=== PATIENT | male | born 1950 | race African-American/Black ===

== ENCOUNTER 2017-08-18 21:08 | Inpatient (IN) | END 2017-08-21 18:06 | disposition home or self-care (01) | DRG 811 ==

== ENCOUNTER 2017-11-03 20:59 | Inpatient (IN) | END 2017-11-05 15:30 | disposition home or self-care (01) | DRG 811 ==

== ENCOUNTER 2017-12-30 12:48 | Inpatient (IN) | END 2017-12-31 21:35 | disposition home or self-care (01) | DRG 811 ==

== ENCOUNTER 2018-01-11 12:10 | Emergency (ER) | END 2018-01-11 13:01 | disposition left against medical advice (07) ==

== ENCOUNTER 2018-10-10 13:28 | Inpatient (IN) | payer MEDICARE, OTHER ==
[2018-10-10] VITALS (16 sets, daily range): BP systolic 90–119; BP diastolic 54–85; PULSE 86–96; RESP 16; Ht 182.9 cm; Wt 67.7 kg
[~2018-10-10] VITALS: Ht 182.9 cm; Wt 67.7 kg
[~2018-10-10 13:28] MED LIST: AMLO-147 PO; CALC-143 PO; FINA5TAB PO; FOLI20CA PO; FURO40TA4 PO; METO-429 PO; TAMS0.4C2 PO; TERA5CAP3 PO; TRAM50TA2 PO
[2018-10-10] MEDS ORDERED: HYDROmorphONE 1 MG/ML SYG IV STA (13:51)
[2018-10-10] MEDS ORDERED: ONDANSETRON 4 MG INJ IV STA (13:51)
[2018-10-10] MEDS ORDERED: FER325 PO (14:24)
[2018-10-10] MEDS ORDERED: FURO40TA4 PO (14:25)
[2018-10-10] MEDS ORDERED: METO-319 PO (14:26)
[2018-10-10] MEDS ORDERED: SVL800C PO (14:26)
[2018-10-10] MEDS ORDERED: AMLO5TAB4 PO (14:27)
[2018-10-10] MEDS ORDERED: TAMS-14 PO (14:27)
[2018-10-10] MEDS ORDERED: B CO1CAP5 PO (14:28)
[2018-10-10] MEDS ORDERED: HYDROCODONE/APAP (5/325) TAB PO ONE (15:00)
[2018-10-10] MEDS ORDERED: SOD CHLORIDE 0.9% 0 ML IV ONE (15:01)
[2018-10-10] MEDS ORDERED: ONDANSETRON 4 MG INJ IV PRN (15:30)
[2018-10-10] MEDS ORDERED: PIPER-TAZO 3.375 GM IV (PMX) 100 ML IVPB ONE (15:30)
[2018-10-10] MEDS ORDERED: ACETAMINOPHEN 325 MG TAB PO PRN (15:30)
[2018-10-10] MEDS ORDERED: VANCOMYCIN 1 GM (PMX) 250 ML IVPB ONE (15:30)
[2018-10-10] MEDS ORDERED: NA POLYST SULFON 15 GM/60 ML BTL PO ONE (15:30)
[2018-10-10] MEDS ORDERED: NA BICARBONATE 8.4% 50 ML SYG IV STA (15:36)
--- NOTE | 2018-10-10 15:36 | ERD ---
ER Documentation Chief Complaint Chief Complaint SICKLE CELL PAIN, HGB 5.9, MISSED DIALYSYS LAST THURSDAY HPI 67-year-old male presents to the emergency department complaining of generalized weakness. Patient has a history of end-stage renal disease requiring dialysis. He is missed his dialysis for the last 4 days or so with his last dialysis on Thursday. He reports of generalized weakness. He has no focal weakness or numbness. He reports no fevers or chills. He reports no pain. Patient also states he has a history of significant anemia along with his history of sickle cell disease. He has required multiple transfusions in the past. He reports no melena or GI bleeding. He reports no active bleeding. ROS All systems reviewed and are negative except as per history of present illness. Medications Home Meds Reported Medications B Complex with Vitamin C (Super B with Vit C) 1 Each Capsule, 1 EACH PO DAILY, CAP 10/10/18 Amlodipine Besylate* (Norvasc*) 5 Mg Tablet, 5 MG PO DAILY, TAB 10/10/18 Tamsulosin Hcl* (Flomax*) 0.4 Mg Cap.er.24h, 0.4 MG PO DAILY, CAP 10/10/18 Metoprolol Succinate* (Toprol XL*) 50 Mg Tab.er.24h, 50 MG PO DAILY, #30 TAB 10/10/18 Sevelamer Hcl* (Renagel*) 800 Mg Tablet, 1600 MG PO WITH MEALS, TAB 10/10/18 Furosemide* (Furosemide*) 40 Mg Tablet, 40 MG PO BID, TAB 10/10/18 Ferrous Sulfate* (Ferrous Sulfate*) 325 Mg Tabec, 325 MG PO DAILY, TAB 10/10/18 Discontinued Reported Medications Tamsulosin Hcl* (Tamsulosin Hcl*) 0.4 Mg Cap.er.24h, 0.4 MG PO DAILY, CAP 08/19/17 Folic Acid (Folic Acid) 20 Mg Capsule, 1 MG PO BID, CAP 08/18/17 Furosemide (Lasix) 40 Mg Tab, 40 MG PO BID, TAB 08/18/17 Terazosin Hcl* (Terazosin Hcl*) 5 Mg Capsule, 5 MG PO HS, CAP 08/18/17 Finasteride* (Proscar*) 5 Mg Tablet, 5 MG PO DAILY, TAB 08/18/17 Amlodipine Besylate* (Amlodipine Besylate*) 10 Mg Tablet, 5 MG PO DAILY, #30 TAB 08/18/17 Tramadol HCl (Tramadol HCl) 50 Mg Tablet, 50 MG PO Q6H PRN for PAIN, #120 TAB 08/18/17 Discontinued Scripts Calcium Citrate/Vitamin D (Citracal-Vitamin D 200 MG-250) 1 Each Tablet, 1 EACH PO BID for 30 Days, #60 TAB 2 Refills Prov:ANDREW PACHECO. 11/05/17 Metoprolol Tartrate* (Lopressor*) 50 Mg Tab, 75 MG PO BID for 30 Days, #60 TAB 2 Refills Prov:ANDREW PACHECO. 11/05/17 Allergies Allergies: Coded Allergies: No Known Allergy (Unverified , 10/10/18) PMhx/Soc History of Surgery: Yes (CHOLECYSTECTOMY) Anesthesia Reaction: No Hx Neurological Disorder: No Hx Respiratory Disorders: Yes Hx Cardiac Disorders: Yes Hx Psychiatric Problems: No Hx Miscellaneous Medical Probl: Yes (sickle cell, esrd, liver cirrhosis, dialysis) Hx Alcohol Use: Yes Hx Substance Use: Yes (MARIJUANA, ETOH ) Hx Tobacco Use: No Smoking Status: Never smoker FmHx Noncontributory for chief complaint Physical Exam Vitals Vital Signs Date Temp Pulse Resp B/P (MAP) Pulse Ox O2 O2 Flow FiO2 Time Delivery Rate 10/10/18 97.8 88 18 104/57 97 13:37 (73) Physical Exam GENERAL: Ill, pale appearing male HEENT: Pupils equal, round, and reactive to light. EOMI. There is no scleral icterus. Mucous membranes are pale NECK: C-spine is soft and supple, there is no meningismus. There is no cervical lymphadenopathy. LUNGS: Clear to auscultation bilaterally. There are no rales, wheezes or rhonchi. HEART: Regular rate and rhythm, no murmurs, clicks, rubs or gallops. ABDOMEN: Soft, non-tender, non-distended. There are bowel sounds in all four quadrants. No rebound or guarding. EXTREMITIES: There is no peripheral cyanosis or edema. No focal swelling or erythema. NEURO: The patient moves all four extremities with 5/5 strength. Cranial nerves II - XII are intact. Normal gait. Alert and oriented SKIN: There is no apparent rash or petechiae. Right subclavian dialysis catheter noted HEME/LYMPHATIC: There is no evidence of excessive bruising or lymphedema. PSYCHIATRIC: The patient does not appear anxious or depressed. Result Diagram: 10/10/18 1445 10/10/18 1445 Results 24 hrs Laboratory Tests Test 10/10/18 14:45 White Blood Count 16.5 10^3/ul Red Blood Count 1.39 10^6/ul Hemoglobin 4.4 g/dl Hematocrit 12.9 % Mean Corpuscular Volume 92.8 fl Mean Corpuscular Hemoglobin 31.7 pg Mean Corpuscular Hemoglobin Concent 34.1 g/dl Red Cell Distribution Width 24.9 % Platelet Count 286 10^3/UL Mean Platelet Volume 10.0 fl Immature Granulocytes % 1.600 % Neutrophils % % Lymphocytes % % Monocytes % % Eosinophils % % Basophils % % Nucleated Red Blood Cells % 6.0 /100WBC Immature Granulocytes # 0.260 10^3/ul Neutrophils # 10^3/ul Lymphocytes # 10^3/ul Monocytes # 10^3/ul Eosinophils # 10^3/ul Basophils # 10^3/ul Nucleated Red Blood Cells # 10^3/ul Prothrombin Time 18.3 Sec Prothrombin Time Ratio 1.4 INR International Normalized Ratio 1.51 Activated Partial Thromboplast Time 37.5 Sec Sodium Level 140 mmol/L Potassium Level 7.8 mmol/L Chloride Level 98 mmol/L Carbon Dioxide Level 7 mmol/L Anion Gap 35 Blood Urea Nitrogen 63 mg/dl Creatinine 13.17 mg/dl Est Glomerular Filtrat Rate mL/min 5 mL/min Glucose Level 66 mg/dl Calcium Level 9.2 mg/dl Total Bilirubin 1.0 mg/dl Direct Bilirubin 0.00 mg/dl Indirect Bilirubin 1.0 mg/dl Aspartate Amino Transf (AST/SGOT) 40 IU/L Alanine Aminotransferase (ALT/SGPT) 17 IU/L Alkaline Phosphatase 221 IU/L Troponin I 0.134 ng/ml Total Protein 8.3 g/dl Albumin 4.1 g/dl Globulin 4.20 g/dl Albumin/Globulin Ratio 0.97 Current Medications Medications Dose Sig/Renny Start Time Status Last (Trade) Ordered Route PRN Stop Time Admin Dose Reason Admin 1 mg ONCE STAT 10/10/18 DC Hydromorphone IV 13:51 HCl 10/10/18 13:53 (Dilaudid) Ondansetron 4 mg ONCE STAT 10/10/18 DC HCl (Zofran IV 13:51 Inj) 10/10/18 13:53 1 tab ONCE ONCE 10/10/18 DC 10/10/18 Acetaminophen PO 15:00 15:07 / 10/10/18 15:01 Hydrocodone Bitart (Dix (5/325)) Sodium 0 ml @ 0 Q0M ONCE 10/10/18 DC Chloride mls/hr IV 15:01 10/10/18 15:02 Vancomycin 250 ml @ ONCE ONCE 10/10/18 HCl 125 mls/hr IVPB 15:30 10/10/18 17:29 Piperacillin 100 ml @ ONCE ONCE 10/10/18 Sod/ 200 mls/hr IVPB 15:30 Tazobactam 10/10/18 15:59 Sod Sodium 30 gm ONCE ONCE 10/10/18 Polystyrene PO 15:30 Sulfonate 10/10/18 15:31 (Kayexalate) Ondansetron 4 mg ER BRIDGE 10/10/18 HCl (Zofran PRN IV 15:30 10/11/18 Inj) NAUSEA/VOMITI 15:29 NG 650 mg ER BRIDGE 10/10/18 Acetaminophen PRN PO 15:30 10/11/18 (Tylenol .MILD PAIN 15:29 Tab) 1-3 OR TEMP Procedures/MDM Patient was taken to a room, seen and evaluated. Comfort measures were initiated. Diagnostic tests were ordered and reviewed. 3 LEAD RHYTHM STRIP: Normal sinus rhythm without ectopy EK lead EKG reviewed by myself: Normal Sinus Rhythm Left axis deviation Nonspecific ST and T wave changes consistent with hyperkalemia Impression: Likely hyperkalemic changes RADIOLOGY: Reviewed with the radiologist CONSULTATION: Hospitalist was notified for admission Dr. Lamas was consulted for nephrology consultation for initiation of dialysis at 1530 REEVALUATION: 1525: Diagnostic tests were appreciated. Treatment for hyperkalemia was initiated and patient was upgraded to intensive care status. Blood transfusion was ordered MEDICAL DECISION MAKIN-year-old male presents the emerge from with generalized weakness of the setting of a known anemia as well as missed dialysis. Differential diagnosis entertained was broad and potential high acuity. Ultimately, patient's diagnostic work-up shows a multitude of concerns. Patient has evidence of a severe anemia likely related to his renal failure as well as his sickle cell disease. He will require transfusion but does not appear to be actively bleeding at this time. Transfusion has been initiated. Patient also has severe elect light abnormalities with a significant acidosis as well as hyperkalemia, for which treatment has been initiated. Patient does have EKG changes which are concerning. Patient also has an elevated white blood cell count and is obviously at risk for a significant infection although a source is somewhat unclear. He does have some nonspecific abnormalities about his chest x-ray. Blood cultures and a lactate have been ordered. Patient has had antibiotics initiated for coverage of both pneumonia as well as possible line infection. Overall, patient is critically ill, but hemodynamically stable will be admitted to the intensive care unit. CRITICAL CARE: Time:>35 minutes Patient has a significant chance of clinical deterioration Treatments/Evaluations: Close monitoring and treatment of unstable vital signs, cardiorespiratory, and neurologic status, while maintaining tight balance of fluid, respiratory, and cardiac interventions. Departure Diagnosis: Primary Impression: Severe anemia Additional Impressions: Renal failure Hyperkalemia Condition: Critical ROWANTRAE Oct 10, 2018 15:36
[2018-10-10] MEDS ORDERED: morphine 4 MG/ML VIAL IV STA (15:54)
[2018-10-10] MEDS ORDERED: CA CHLORIDE 10% 10 ML SYRINGE IV ONE (16:00)
[2018-10-10] MEDS ORDERED: NACL 0.9% 3 ML SYG IV SCH (16:30)
[2018-10-10] MEDS ORDERED: SEVELAMER 800 MG TAB PO SCH (18:00)
[2018-10-10] MEDS: SEVELAMER CARBONATE 800 MG TABLET PO SCH (18:12)
--- NOTE | 2018-10-10 18:27 | CONS ---
DATE OF ADMISSION: 10/10/2018 DATE OF CONSULTATION: 10/10/2018 TYPE OF CONSULTATION: Nephrology. REASON FOR CONSULTATION: End-stage renal disease, hyperkalemia, metabolic acidosis. PHYSICIAN REQUESTING CONSULTATION: Dr. Gallego. HISTORY OF PRESENT ILLNESS: This is a 67-year-old male with a past medical history of end-stage steve l disease on dialysis Thursday, Thursday, Thursday. Access is a subclavian catheter, a history of hyper tension, history of BPH, history of mineral bone disorder who presents to [facility] for generalized weakness. The patient states approximately 4 or 5 days ago at his dialysis unit in [facility], the patient was told that he had severe anemia and needed blood transfusion. The patient w ent to [facility] and was told that his anemia was not significant enough for a transfusion. Th e patient states over the last several days, he has noted increased weakness. As a result, he came t o the emergency room. The patient denied any hemoptysis, hematemesis, hematochezia, any gross eviden ce of bleeding. In the emergency room, laboratory data was drawn and showed that the patient had hem oglobin 4.4, potassium 7.8, and a bicarb of 7. In the emergency room, the patient was given IV antib iotics, sodium bicarbonate and Kayexalate and calcium gluconate. The patient also had a chest x-ray which showed bibasilar opacities. PAST MEDICAL HISTORY: History of end-stage renal disease, history of anemia, history of hypertension , history of BPH. PAST SURGICAL HISTORY: Status post Travon catheter placement. FAMILY HISTORY: No family history of kidney disease. SOCIAL HISTORY: Positive marijuana use. History of sickle cell disease, liver cirrhosis. ALLERGIES: NO KNOWN DRUG ALLERGIES. REVIEW OF SYSTEMS: A 14-point review of systems conducted. Pertinent positives stated in HPI, other masters negative. PHYSICAL EXAMINATION: VITAL SIGNS: Blood pressure is 104/57, respirations 18, pulse 80, temperature 97.8. HEENT: Head is normocephalic. NECK: Supple. HEART: Regular rate. LUNGS: Show diminished breath sounds at the base. ABDOMEN: Soft, nontender to palpation. No rebound or guarding. EXTREMITIES: Negative for clubbing, cyanosis. No edema. DERMATOLOGIC: No rashes. MUSCULOSKELETAL: No joint effusions. NEUROLOGIC: No focal deficits. MEDICATIONS: The patient's medications have been reviewed. LABORATORY DATA: Has been reviewed. IMAGING STUDIES: Have been reviewed. ASSESSMENT AND PLAN: This is a 67-year-old male who presents with: 1. End-stage renal disease. The patient is on dialysis Thursday, Thursday, Thursday. Access is a Rose Mary ton catheter. Plan is for urgent hemodialysis. The patient will be dialyzed for 3-1/2 hours on a 2 potassium bath, calcium 2.5, bicarbonate of 40. Will ultrafiltrate as tolerated. 2. Hyperkalemia. Etiology is secondary to end-stage renal disease in conjunction with dietary indis cretion. The patient will be dialyzed on a 2 potassium bath 3-1/2 hours. Anticipate dialysis again tomorrow for solute clearance. 3. Metabolic acidosis secondary to end-stage renal disease. The patient will be dialyzed on a high- bicarbonate bath. 4. Anemia. Etiology is likely secondary to end-stage renal disease in conjunction with sickle cell anemia. Plan for blood transfusion. Will check an iron panel. If the patient is iron deficient, we will give the patient intravenous Ferrlecit if needed. We will continue Epogen. 5. Mineral bone disorder. Monitor calcium and phosphorus levels. Continue phosphate binders needed . 6. Systemic inflammatory response syndrome, possible sepsis secondary to possible pneumonia. The nadeen corcoran's chest x-ray shows evidence of infiltrate. Continue antibiotic therapy. 7. Elevated troponin. Etiology may be secondary to demand ischemia. Continue to monitor. Serial tr oponin. Check a 2 potassium echocardiogram. Consider cardiology consult. Rule out acute coronary s yndrome. Thank you, Dr. Gallego, for this interesting consult. It will be a pleasure to follow the patient with you throughout the hospital course. Dictated By: DELORIS MARTINEZ DO NR/NTS Conf#: [id number] DID#: [id number] CC: TRAE GALLEGO;*EndCC*
--- NOTE | 2018-10-10 18:53 | HP ---
Date/Time of Note Date/Time of Note DATE: 10/10/18 TIME: 18:47 Assessment/Plan VTE Prophylaxis SCD applied (from Nsg): Yes Pharmacological prophylaxis: heparin Lines/Catheters IV Catheter Type (from Nrsg): Saline Lock Assessment/Plan Hospital Course 67 yo male with h/o ESRD on HD and sickle cell disease who was referred to the [facility] for anemia. Also found to have marked metabolic acidosis and hyperkalemia ESRD with metabolic acidosis and hyperkalemia: - Currently undergoing HD treatment. Further management per Dr Lamas Anemia with sickle cell disease: - Currently being transfused 1 unit PRBCs - No clinicl history of bleeding. Per chart review, patient with long history of severe anemia Sickle cell pain crisis: - Taking tylenol PM at home for this - Grant PRN Lactic acidosis: - Suspect this is from marked anemia? He is alert and does not show signs of shock or hypoperfusion NSTEMI: - Suspect type II PA. No chest symptoms to warrant consideration of an ACS Discharge planning pendign clincial course Result Diagram: 10/10/18 1445 10/10/18 1445 Results 24hrs Laboratory Tests Test 10/10/18 14:17 10/10/18 14:45 10/10/18 15:28 Iron Level 229 H Total Iron Binding Capacity 168 L Percent Iron Saturation 136 H White Blood Count 16.5 #H Red Blood Count 1.39 #L Hemoglobin 4.4 #*L Hematocrit 12.9 #L Mean Corpuscular Volume 92.8 Mean Corpuscular Hemoglobin 31.7 Mean Corpuscular Hemoglobin Concent 34.1 Red Cell Distribution Width 24.9 #H Platelet Count 286 # Mean Platelet Volume 10.0 Immature Granulocytes % 1.600 H Neutrophils % Segmented Neutrophils % (Manual) 75 Lymphocytes % Lymphocytes % (Manual) 11 L Monocytes % Monocytes % (Manual) 14 H Eosinophils % Basophils % Nucleated Red Blood Cells % 6.0 H Immature Granulocytes # 0.260 H Neutrophils # Lymphocytes (Manual) 1.8 Lymphocytes # 1.8 Monocytes # 2.3 H Monocytes # (Manual) 2.3 H Eosinophils # Basophils # Nucleated Red Blood Cells # Platelet Estimate NORMAL Sickle Cells 2+ Prothrombin Time 18.3 #H Prothrombin Time Ratio 1.4 INR International Normalized Ratio 1.51 Activated Partial Thromboplast Time 37.5 H Sodium Level 140 Potassium Level 7.8 *H Chloride Level 98 Carbon Dioxide Level 7 *L Anion Gap 35 H Blood Urea Nitrogen 63 H Creatinine 13.17 H Est Glomerular Filtrat Rate mL/min 5 L Glucose Level 66 L Calcium Level 9.2 Total Bilirubin 1.0 Direct Bilirubin 0.00 Indirect Bilirubin 1.0 Aspartate Amino Transf (AST/SGOT) 40 Alanine Aminotransferase (ALT/SGPT) 17 Alkaline Phosphatase 221 H Troponin I 0.134 *H Total Protein 8.3 H Albumin 4.1 Globulin 4.20 H Albumin/Globulin Ratio 0.97 Lactic Acid Level 11.7 *H HPI/ROS Admit Date/Time Admit Date/Time Hx of Present Illness 67 yo male with h/o ESRD and sickle cell disease who presents for anemia His HD center told him his Hgb was 5.6 last Thursday. He has felt bone pain from his sickle cell disease, believes he is in a "crisis." He takes tylenol PM for this. He has felt low energy and BANKS as well so came to the ER for evalation. Here found to be profoundly anemic and with marked metabolic acidosis. STAT HD was arranged and he is currently undergoing hemodialysis. He denies any bleeding, hematochezia, or melena. Has a slight cough he says. No fevers or chills. ROS Constitutional: no complaints, improved Eyes: no complaints ENT: no complaints Respiratory: no complaints Cardiovascular: no complaints Gastrointestinal: no complaints Genitourinary: no complaints Musculoskeletal: no complaints Skin: no complaints Neurologic: no complaints Endocrine: no complaints Lymphatic: no complaints Psychological: no complaints, nl mood/affect Immunologic: no complaints PMH/Family/Social Past Medical History Medical History: no pertinent history, renal disease Medications Current Medications Ondansetron HCl (Zofran Inj) 4 mg ER BRIDGE PRN IV NAUSEA/VOMITING; Start 10/10/18 at 15:30; Stop 10/11/18 at 15:29 Acetaminophen (Tylenol Tab) 650 mg ER BRIDGE PRN PO .MILD PAIN 1-3 OR TEMP; Start 10/10/18 at 15:30; Stop 10/11/18 at 15:29 IV Flush (NS 3 ml) 3 ml PER PROTOCOL IV ; Start 10/10/18 at 16:30 Acetaminophen/ Hydrocodone Bitart (Grant (5/325)) 2 tab Q6H PRN PO .SEVERE PAIN 7-10; Start 10/10/18 at 16:30 Sevelamer Carbonate (Renvela) 1,600 mg WITH MEALS PO Last administered on 10/10/18at 18:12; Admin Dose 1,600 MG; Start 10/10/18 at 18:00 Coded Allergies: No Known Allergy (Unverified , 10/10/18) Past Surgical History Past Surgical Hx: no surgical history, other Family History Significant Family History: no pertinent family hx Social History Smoking Status: Never smoker Exam/Review of Systems Vital Signs Vitals Vital Signs Date Temp Pulse Resp B/P (MAP) Pulse Ox O2 O2 Flow FiO2 Time Delivery Rate 10/10/18 91 16 108/79 100 Nasal 2.0 16:26 (89) Cannula 10/10/18 97.8 13:37 Exam Constitutional: alert, oriented, well developed Psych: no complaints, nl mood/affect Head: normocephalic, atraumatic Eyes: nl conjunctiva, EOMI, nl lids, nl sclera, PERRL ENMT: nl external ears & nose, nl lips & teeth, nl nasal mucosa & septum Neck: supple, non-tender Respiratory: clear to auscultation, normal air movement Cardiovascular: regular rate and rhythm, nl pulses Gastrointestinal: soft, nl liver, spleen, non-tender Musculoskeletal: nl extremities to inspection Extremities: normal pulses 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
[2018-10-10] MEDS ORDERED: HYDROCODONE/APAP (5/325) TAB PO PRN (19:00)
[2018-10-10] MEDS: HYDROCODONE/APAP (5/325) TAB PO PRN (22:05)
[2018-10-11] VITALS (25 sets, daily range): BP systolic 92–126; BP diastolic 35–75; PULSE 75–99; RESP 12–19
[2018-10-11] MEDS: HYDROCODONE/APAP (5/325) TAB PO PRN ×2 (05:57→22:13)
[2018-10-11] MEDS: SEVELAMER CARBONATE 800 MG TABLET PO SCH ×3 (07:36→18:17)
--- NOTE | 2018-10-11 08:48 | PN ---
DATE: 10/11/2018 SUBJECTIVE: The patient had hemodialysis yesterday, tolerated well. The patient remains markedly an emic. No other acute events noted. No hemoptysis, hematemesis, or hematochezia. OBJECTIVE: VITAL SIGNS: Blood pressure is 112/35, respiration 12, pulse 86, temperature 98.1. HEENT: Head is normocephalic. NECK: Supple. HEART: Regular rate. LUNGS: Show diminished breath sounds at the base. ABDOMEN: Soft, nontender to palpation without rebound or guarding. EXTREMITIES: Negative for clubbing, cyanosis, no edema. DERMATOLOGIC: No rashes. MUSCULOSKELETAL: No joint effusion. NEUROLOGIC: No change in exam. MEDICATIONS: Have been reviewed. LABORATORY DATA: Has been reviewed. IMAGING STUDIES: Have been reviewed. ASSESSMENT AND PLAN: 1. End-stage renal disease. The patient is on dialysis Thursday, Thursday, Thursday. The patient's ac cess is a Perm-A-Cath. The patient had urgent dialysis yesterday. Plan for dialysis again today for solute clearance. 2. Hyperkalemia secondary to end-stage renal disease. Continue dialysis on low potassium bath. 3. Metabolic acidosis secondary to end-stage renal disease, improving. Continue dialysis on a high bicarbonate bath. 4. Anemia, etiology may be multifactorial secondary to end-stage renal disease, questionable sickle cell component. The patient remains markedly anemic. Will transfuse again with PRBCs. Continue Epo gen and monitor. 5. Mineral bone disorder. Monitor calcium and phosphorus levels. 6. Systemic inflammatory response syndrome, possible sepsis. Continue current antibiotic regimen. 7. Elevated troponin likely from demand ischemia, non-STEMI type 2. Continue to monitor. 8. Lactic acidosis. Etiology is likely secondary to steroids, severe anemia. Continue to monitor. Continue to trend lactic acid levels. Continue current antibiotic regimen. Dictated By: DELORIS GONZALEZ/SKYLAR Conf#: [id number] DID#: [id number]
[2018-10-11] MEDS ORDERED: HEPARIN 1000 UNITS/ML 10 ML INJ CATHETER SCH (09:00)
--- NOTE | 2018-10-11 15:59 | PN ---
Date/Time of Note Date/Time of Note DATE: 10/11/18 TIME: 15:58 Assessment/Plan VTE Prophylaxis Risk score (from Ns)>0 risk: 1 SCD applied (from Ns): Yes Pharmacological prophylaxis: NA/contraindicated Pharm contraindication: renal impairment Lines/Catheters [facility]from [facility] [place] Assessment/Plan Hospital Course 67 yo male with h/o ESRD on HD and sickle cell disease who was referred to the ED for anemia. Also found to have marked metabolic acidosis and hyperkalemia ESRD with metabolic acidosis and hyperkalemia: -Continue hemodialysis, further management per Dr Lamas Anemia with sickle cell disease: -Status post transfusion -Patient with long history of anemia Sickle cell pain crisis: - Taking tylenol PM at home for this - [place] PRN Lactic acidosis: Resolved - Suspect this is from marked anemia, He is alert and does not show signs of shock or hypoperfusion NSTEMI: - Suspect type II [place]. No chest symptoms to warrant consideration of an ACS Prophylaxis: SCDs Result Diagram: 10/11/18 0509 10/11/18 0509 Results 24hrs Laboratory Tests Test 10/11/18 05:09 10/11/18 08:43 White Blood Count 19.8 H Red Blood Count 1.79 #L Hemoglobin 5.6 #*L Hematocrit 16.3 #L Mean Corpuscular Volume 91.1 Mean Corpuscular Hemoglobin 31.3 Mean Corpuscular Hemoglobin Concent 34.4 Red Cell Distribution Width 22.9 H Platelet Count 305 Mean Platelet Volume 10.6 H Immature Granulocytes % 0.900 H Neutrophils % Segmented Neutrophils % (Manual) 79 H Band Neutrophils % (Manual) 1 Lymphocytes % Lymphocytes % (Manual) 11 L Monocytes % Monocytes % (Manual) 9 Eosinophils % Basophils % Nucleated Red Blood Cells % 13 H Immature Granulocytes # 0.180 H Neutrophils # Neutrophils # (Manual) 15.7 H Band Neutrophils # 0.1 Lymphocytes (Manual) 2.1 Lymphocytes # Monocytes # Monocytes # (Manual) 1.7 H Eosinophils # Basophils # Nucleated Red Blood Cells # Platelet Estimate NORMAL Giant Platelets 1 H Polychromasia 3+ Hypochromasia 1+ Poikilocytosis 2+ Anisocytosis 2+ Macrocytosis 2+ Sickle Cells 2+ Target Cells 3+ Sodium Level 143 Potassium Level 5.3 #H Chloride Level 99 Carbon Dioxide Level 25 # Anion Gap 19 #H Blood Urea Nitrogen 36 #H Creatinine 6.56 #H Est Glomerular Filtrat Rate mL/min 10 L Glucose Level 77 Hemoglobin A1c Calcium Level 8.8 Total Bilirubin 1.2 Direct Bilirubin 0.00 Indirect Bilirubin 1.2 H Aspartate Amino Transf (AST/SGOT) 85 #H Alanine Aminotransferase (ALT/SGPT) 41 Alkaline Phosphatase 212 H Total Protein 8.3 H Albumin 4.0 Globulin 4.30 H Albumin/Globulin Ratio 0.93 Lactic Acid Level 1.2 Subjective 24 Hr Interval Summary Constitutional: disoriented Exam/Review of Systems Exam Vitals Vital Signs Date Temp Pulse Resp B/P (MAP) Pulse Ox O2 O2 Flow FiO2 Time Delivery Rate 10/11/18 Nasal 2.0 14:42 Cannula 10/11/18 76 14 114/70 100 12:07 (85) 10/11/18 98.3 12:00 Intake and Output 10/10/18 10/10/18 10/11/18 1515:00 23:00 07:00 IntakeIntake Total 350 ml 240 ml OutputOutput Total 3025 ml BalanceBalance -2675 ml 240 ml Constitutional: alert Respiratory: clear to auscultation Cardiovascular: regular rate and rhythm Gastrointestinal: soft; No distended Musculoskeletal: nl extremities to inspection Results Results 24hrs Laboratory Tests Test 10/11/18 05:09 10/11/18 08:43 White Blood Count 19.8 H Red Blood Count 1.79 #L Hemoglobin 5.6 #*L Hematocrit 16.3 #L Mean Corpuscular Volume 91.1 Mean Corpuscular Hemoglobin 31.3 Mean Corpuscular Hemoglobin Concent 34.4 Red Cell Distribution Width 22.9 H Platelet Count 305 Mean Platelet Volume 10.6 H Immature Granulocytes % 0.900 H Neutrophils % Segmented Neutrophils % (Manual) 79 H Band Neutrophils % (Manual) 1 Lymphocytes % Lymphocytes % (Manual) 11 L Monocytes % Monocytes % (Manual) 9 Eosinophils % Basophils % Nucleated Red Blood Cells % 13 H Immature Granulocytes # 0.180 H Neutrophils # Neutrophils # (Manual) 15.7 H Band Neutrophils # 0.1 Lymphocytes (Manual) 2.1 Lymphocytes # Monocytes # Monocytes # (Manual) 1.7 H Eosinophils # Basophils # Nucleated Red Blood Cells # Platelet Estimate NORMAL Giant Platelets 1 H Polychromasia 3+ Hypochromasia 1+ Poikilocytosis 2+ Anisocytosis 2+ Macrocytosis 2+ Sickle Cells 2+ Target Cells 3+ Sodium Level 143 Potassium Level 5.3 #H Chloride Level 99 Carbon Dioxide Level 25 # Anion Gap 19 #H Blood Urea Nitrogen 36 #H Creatinine 6.56 #H Est Glomerular Filtrat Rate mL/min 10 L Glucose Level 77 Hemoglobin A1c Calcium Level 8.8 Total Bilirubin 1.2 Direct Bilirubin 0.00 Indirect Bilirubin 1.2 H Aspartate Amino Transf (AST/SGOT) 85 #H Alanine Aminotransferase (ALT/SGPT) 41 Alkaline Phosphatase 212 H Total Protein 8.3 H Albumin 4.0 Globulin 4.30 H Albumin/Globulin Ratio 0.93 Lactic Acid Level 1.2 Medications Medication Current Medications IV Flush (NS 3 ml) 3 ml PER PROTOCOL IV ; Start 10/10/18 at 16:30 Acetaminophen/ Hydrocodone Bitart ([place] (5/325)) 2 tab Q6H PRN PO .SEVERE PAIN 7-10 Last administered on 10/11/18at 05:57; Admin Dose 2 TAB; Start 10/10/18 at 16:30 Sevelamer Carbonate (Renvela) 1,600 mg WITH MEALS PO Last administered on 10/11/18at 12:15; Admin Dose 1,600 MG; Start 10/10/18 at 18:00 Acetaminophen/ Hydrocodone Bitart ([place] (5/325)) 1 tab Q4H PRN PO MODERATE PAIN LEVEL 4-6 Last administered on 10/11/18at 13:57; Admin Dose 1 TAB; Start 10/10/18 at 19:00 Epoetin Tulio-epbx (Retacrit (Esrd)) 10,000 unit MoWeFr@1700 SC ; Start 10/11/18 at 17:00 Heparin Sodium (Porcine) (Heparin (1000 Units/ml)) 3,300 unit AFTER DIALYSIS CATHETER Last administered on 10/11/18at 11:34; Admin Dose 3,300 UNIT; Start 10/11/18 at 09:00 MARGA RINCON Oct 11, 2018 15:59
[2018-10-11] MEDS ORDERED: EPOETIN ALFA-EPBX (ESRD) 10,000 UNIT/ML VIAL SC SCH (17:00)
[2018-10-12 02:20] VITALS: BP 119/66; PULSE 87; RESP 18
[2018-10-12 07:32] VITALS: BP 122/60; PULSE 83; RESP 16
--- NOTE | 2018-10-12 08:44 | PN ---
DATE: 10/12/2018 SUBJECTIVE: The patient is stable ____ overnight. No fevers, chills, nausea, vomiting. OBJECTIVE: VITAL SIGNS: Blood pressure is 119/66, pulse 87, temperature 97.5. HEENT: Head is normocephalic. NECK: Supple. HEART: Regular rate. LUNGS: Show diminished breath sounds at the base. ABDOMEN: Soft, nontender to palpation without rebound or guarding. EXTREMITIES: Negative for clubbing, cyanosis, no edema. DERMATOLOGIC: No rashes. MUSCULOSKELETAL: No joint effusion. NEUROLOGIC: No change in exam. MEDICATIONS: Reviewed. LABORATORY DATA: Reviewed. IMAGING STUDIES: Have been reviewed. ASSESSMENT AND PLAN: 1. End-stage renal disease. The patient is on dialysis Thursday, Thursday, and Thursday ____ hemodialy sis again tomorrow. 2. Hyperkalemia secondary to end-stage renal disease. Continue dialysis on low potassium bath. Con tinue low-potassium diet. 3. Anemia, etiology is multifactorial secondary to end-stage renal disease, possible sickle cell com ponent. 4. Alcoholic. The patient is status post blood transfusion, monitor hemoglobin and hematocrit level s. Continue Epogen. 5. Metabolic acidosis secondary to end-stage renal disease, improved. 6. Mineral bone disorder. Monitor calcium and phosphorus levels. Continue phosphorus binders. 7. Elevated troponin, likely NSTEMI type 2. Continue to monitor. 8. Lactic acidosis, likely from severe anemia, resolved. 9. Sickle cell pain crisis. Continue current pain regimen. Dictated By: DELORIS MARTINEZ DO NR/NTS Conf#: [id number] DID#: [id number] CC: JESSICA ELKINS MD;*EndCC*
[2018-10-12] MEDS: SEVELAMER CARBONATE 800 MG TABLET PO SCH ×3 (09:03→18:16)
[2018-10-12] MEDS ORDERED: DOCUSATE SODIUM 100 MG CAP PO SCH (12:30)
--- NOTE | 2018-10-12 12:39 | PDOCDIS ---
Discharge Instructions CONDITION [id number] Patient Condition: [id number] Good HOME CARE INSTRUCTIONS: [id number] Diet Instructions: [id number] Regular ACTIVITY: [id number] Activity Restrictions: [id number] Slowly Increase Activity FOLLOW UP/APPOINTMENTS Follow-up Plan FOLLOW UP WITH YOUR PCP IN 1-2 WEEKS MARGA RINCON Oct 12, 2018 12:39
[2018-10-12] MEDS ORDERED: MAGNESIUM HYDROXIDE 30ML CUP PO ONE (13:30)
[2018-10-12 14:15] VITALS: BP 116/62; PULSE 97; RESP 16
--- NOTE | 2018-10-12 15:20 | DS ---
Date/Time of Note Date/Time of Note DATE: 10/12/18 TIME: 15:18 Discharge Summary Admission/Discharge Info Admit Date/Time Oct 10, 2018 at 15:30 Discharge Date/Time October 12, 2018 Discharge Diagnosis 67 yo male with h/o ESRD on HD and sickle cell disease who was referred to the ED for anemia. Also found to have marked metabolic acidosis and hyperkalemia ESRD with metabolic acidosis and hyperkalemia: -Status post inpatient hemodialysis, continue hemodialysis as outpatient Anemia with sickle cell disease: -Status post transfusion -Patient with long history of anemia Sickle cell pain crisis: Pain controlled - Taking tylenol PM at home for this Lactic acidosis: Resolved - Suspect this is from marked anemia, He is alert and does not show signs of shock or hypoperfusion NSTEMI: - Suspect type II [place]. No chest symptoms to warrant consideration of an ACS Patient Condition: Good Hospital Course Patient is a 67 yo male with h/o ESRD on HD and sickle cell disease who was referred to the ED for anemia. Also found to have marked metabolic acidosis and hyperkalemia requiring hemodialysis. Patient received 3 units of packed red blood cells with stabilization of anemia. Patient's pain was controlled and was continue his home Tylenol. Patient was stable for DC, on the day of discharge patient's vitals, labs and physical exam are stable. Home Meds Reported Medications B Complex with Vitamin C (Super B with Vit C) 1 Each Capsule, 1 EACH PO DAILY, CAP 10/10/18 Amlodipine Besylate* (Norvasc*) 5 Mg Tablet, 5 MG PO DAILY, TAB 10/10/18 Tamsulosin Hcl* (Flomax*) 0.4 Mg Cap.er.24h, 0.4 MG PO DAILY, CAP 10/10/18 Metoprolol Succinate* (Toprol XL*) 50 Mg Tab.er.24h, 50 MG PO DAILY, #30 TAB 10/10/18 Sevelamer Hcl* (Renagel*) 800 Mg Tablet, 1600 MG PO WITH MEALS, TAB 10/10/18 Furosemide* (Furosemide*) 40 Mg Tablet, 40 MG PO BID, TAB 10/10/18 Ferrous Sulfate* (Ferrous Sulfate*) 325 Mg Tabec, 325 MG PO DAILY, TAB 10/10/18 Discontinued Reported Medications Tamsulosin Hcl* (Tamsulosin Hcl*) 0.4 Mg Cap.er.24h, 0.4 MG PO DAILY, CAP 08/19/17 Folic Acid (Folic Acid) 20 Mg Capsule, 1 MG PO BID, CAP 08/18/17 Furosemide (Lasix) 40 Mg Tab, 40 MG PO BID, TAB 08/18/17 Terazosin Hcl* (Terazosin Hcl*) 5 Mg Capsule, 5 MG PO HS, CAP 08/18/17 Finasteride* (Proscar*) 5 Mg Tablet, 5 MG PO DAILY, TAB 08/18/17 Amlodipine Besylate* (Amlodipine Besylate*) 10 Mg Tablet, 5 MG PO DAILY, #30 TAB 08/18/17 Tramadol HCl (Tramadol HCl) 50 Mg Tablet, 50 MG PO Q6H PRN for PAIN, #120 TAB 08/18/17 Discontinued Scripts Calcium Citrate/Vitamin D (Citracal-Vitamin D 200 MG-250) 1 Each Tablet, 1 EACH PO BID for 30 Days, #60 TAB 2 Refills Prov:ANDREW PACHECO 11/05/17 Metoprolol Tartrate* (Lopressor*) 50 Mg Tab, 75 MG PO BID for 30 Days, #60 TAB 2 Refills Prov:ANDREW PACHECO 11/05/17 Follow-up Plan FOLLOW UP WITH YOUR PCP IN 1-2 WEEKS Primary Care Provider Care Physician No Primary Time spent on discharge: > 30 minutes MARGA RINCON Oct 12, 2018 15:20
== END 2018-10-12 18:30 | disposition home or self-care (01) | DRG 811 ==
LOC: E/R 13:28 → ICU 15:30 → SUATTDRO 16:06 → PP2 10-11 14:20
PROVIDERS: ADMIT Internal Medicine; ATTEND Internal Medicine
PROC: 30233N1 Transfusion of Nonautologous Red Blood Cells into Peripheral Vein, Percutaneous Approach (ICD-10-PCS; 2018-10-10)
PROC: 5A1D70Z Performance of Urinary Filtration, Intermittent, Less than 6 Hours Per Day (ICD-10-PCS; 2018-10-10)
PROC: 30233N1 Transfusion of Nonautologous Red Blood Cells into Peripheral Vein, Percutaneous Approach (ICD-10-PCS; principal; 2018-10-11)
PROC: 5A1D70Z Performance of Urinary Filtration, Intermittent, Less than 6 Hours Per Day (ICD-10-PCS; 2018-10-11)
DX: D57.1 Sickle-cell disease without crisis (principal); N18.6 End stage renal disease; I21.4 Non-ST elevation (NSTEMI) myocardial infarction; E87.2 Acidosis; R65.10 Systemic inflammatory response syndrome (SIRS) of non-infectious origin without acute organ dysfunction; I12.0 Hypertensive chronic kidney disease with stage 5 chronic kidney disease or end stage renal disease; D57.00 Hb-SS disease with crisis, unspecified; E87.5 Hyperkalemia; K74.60 Unspecified cirrhosis of liver; Z99.2 Dependence on renal dialysis; N40.0 Benign prostatic hyperplasia without lower urinary tract symptoms
CPT/HCPCS: 36430; 71045; 80048; 80053; 82728; 83036; 83540; 83605; 83735; 84100; 84484; 85014; 85018; 85025; 85610; 85730; 86706; 86850; 86870; 86900; 86901; 86920; 87081; 87340; 90935; 93005; J1170; J1644; J2270; J2405; J2543; J3370; J7040; P9016; Q5105